=== PATIENT | male | born 1965 | race Caucasian/White ===

== ENCOUNTER → 2020-06-28 13:06 | Outpatient (REF) | payer OTHER, SELFPAY | LOC: ANHLAB 13:06 | PROVIDERS: PCP Physician Assistant; Visit Provider Nurse Practitioner | DX: L72.11 Pilar cyst (principal); L72.0 Epidermal cyst | CPT/HCPCS: 88304 ==

== ENCOUNTER 2021-04-05 00:49 | Day surgery (SDC) | payer OTHER, SELFPAY ==
[2021-03-28 11:47] VITALS: BMI 28.5
--- NOTE | 2021-04-04 13:46 | PM.HPGS ---
History of Present Illness History of Present Illness Consent: Risks, benefits, and alternatives have been discussed and questions answered. Patient agrees to proceed with procedure. Chief complaint: family hx of colon ca Narrative: Sanket Valero is a 55 year old male referred for colon cancer screening. He has a family history of colon cancer Review of Systems Review of Systems: All systems reviewed & are unremarkable except as noted in HPI and below PMFSH Past Medical History Medical History High cholesterol Hypertension Sleep apnea Surgical History Surgical History History of appendectomy 2005 History of prostatectomy 2009 History of removal of cyst scalp - 2009 Family History Family History Sibling Hypertension Family history of obesity Non-Hodgkin lymphoma Mother Cerebrovascular accident Family history of heart disease in male family member before age 55 Father Hypertension Family history of malignant neoplasm Social History Social History Smoking status: Never smoker Alcohol intake: current Drinks per week: 10 Alcohol use details: wine/liquor Living arrangements: with family Spiritual care concerns: No Meds Home Medications and Allergies Home Medications Medication Instructions Recorded Confirmed Type candesartan 16 mg tablet 16 mg PO DAILY 04/30/20 04/05/21 History niacin 500 mg tablet 500 mg PO DAILY 04/30/20 04/05/21 History omega 1-vgj-oxx-fish oil 300 3 cap PO DAILY 04/30/20 04/05/21 History mg-1,000 mg capsule oxybutynin chloride 5 mg tablet 5 mg PO DAILY 04/30/20 04/05/21 History rosuvastatin 10 mg tablet 10 mg PO DAILY 04/30/20 04/05/21 History Allergies Allergy/AdvReac Type Severity Reaction Status Date / Time No Known Allergies Allergy Verified 04/05/21 08:12 Exam Resp: Auscultation: clear to auscultation bilaterally Cardio: Rate: regular rate Rhythm: regular rhythm GI: GI Palp: Yes Soft to palpation and No Tenderness to palpation present (GI) Assessment and Plan Assessment and plan (1) Colon cancer screening: Code(s): Z12.11 - Encounter for screening for malignant neoplasm of colon Status: Acute Assessment and Plan: Colonoscopy with possible biopsy or polypectomy or cautery or injection of substances.
[2021-04-05 08:12] VITALS: BP 138/93; PULSE 64; RESP 17; TEMP 36; O2SAT 100; BMI 28.5
[2021-04-05] MEDS: LACTATED RINGERS 1,000 ML 150 ML IV CONT (08:14)
--- NOTE | 2021-04-05 08:19 | WPDANESEPPF ---
Anes - Initial Pre Proc Eval Procedure: Operation Date: 04/05/21 09:30 Proposed Procedures p Screening Colonoscopy - Enzo Zapata MD Date/Time: 04/05/21 08:19 Surgeon: Enzo Zapata MD Pre Op Diagnosis: family hx of colon ca Patient Data Age: 55 Gender: M Height: 1.75 m Weight: 87.6 kg Last Vital Signs Temp 36.0 C L 04/05/21 08:12 Pulse 64 04/05/21 08:12 Resp 17 04/05/21 08:12 BP 138/93 H 04/05/21 08:12 Pulse Ox 100 04/05/21 08:12 Allergies Allergy/AdvReac Type Severity Reaction Status Date / Time No Known Allergies Allergy Verified 04/05/21 08:12 Home Medications Medication Instructions Recorded Confirmed Type candesartan 16 mg tablet 16 mg PO DAILY 04/30/20 04/05/21 History niacin 500 mg tablet 500 mg PO DAILY 04/30/20 04/05/21 History omega 3-efp-tmb-fish oil 300 3 cap PO DAILY 04/30/20 04/05/21 History mg-1,000 mg capsule oxybutynin chloride 5 mg tablet 5 mg PO DAILY 04/30/20 04/05/21 History rosuvastatin 10 mg tablet 10 mg PO DAILY 04/30/20 04/05/21 History Patient hx anesthesia problems: none Family hx anesthesia problems: none Results Review: All pre-operative results and documents have been reviewed as part of the pre-operative evaluation. FOR[facility]LY [facility] Past Medical History Medical History High cholesterol Hypertension Sleep apnea Surgical History Surgical History History of appendectomy 2006 History of prostatectomy 2009 History of removal of cyst scalp - 2009 Family History Family History Sibling Hypertension Family history of obesity Non-Hodgkin lymphoma Mother Cerebrovascular accident Family history of heart disease in male family member before age 55 Father Hypertension Family history of malignant neoplasm Social History Social History Smoking status: Never smoker Alcohol intake: current Drinks per week: 10 Alcohol use details: wine/liquor Living arrangements: with family Spiritual care concerns: No Anes - Eval Final PreProcedure Day of Procedure 04/05/21 08:19 Patient weight: overweight Heart: regular rate and rhythm Lungs: clear to auscultation Airway: Mallampati scale class II Neurological: alert and oriented Last oral intake: >/= 8 hours ASA classification: III Emergent: no Anesthetic plan: proceed Anesthesia type and monitoring: general GIVS and standard monitoring Results Review: All pre-operative results and documents have been reviewed as part of the pre-operative evaluation. Informed Consent: The patient's anesthetic plan and its attendant risks and benefits were discussed with the patient/family/POA. Questions were solicited and answers provided to the satisfaction of the patient/family/POA.
[2021-04-05 09:39] VITALS: BP 110/70; PULSE 72; RESP 22; O2SAT 94
[2021-04-05 09:49] VITALS: BP 121/71; PULSE 73; RESP 24; O2SAT 100
[2021-04-05 09:59] VITALS: BP 120/72; PULSE 75; RESP 20; O2SAT 100
== END 2021-04-05 10:09 | disposition home or self-care (01) ==
PROVIDERS: PCP Physician Assistant; Visit Provider Internal Medicine Gastroenterology
PROC: 0DJD8ZZ Inspection of Lower Intestinal Tract, Via Natural or Artificial Opening Endoscopic (ICD-10-PCS; CPT 45378; principal; 2021-04-05 09:30)
DX: Z12.11 Encounter for screening for malignant neoplasm of colon (principal); K62.1 Rectal polyp; Z80.0 Family history of malignant neoplasm of digestive organs; I10 Essential (primary) hypertension; G47.30 Sleep apnea, unspecified; E78.00 Pure hypercholesterolemia, unspecified
CPT/HCPCS: 45380; 88305; J2001; J2704; J7120

== ENCOUNTER → 2021-07-09 11:42 | Outpatient (REF) | payer OTHER, SELFPAY | LOC: ANHLAB 11:42 | PROVIDERS: PCP Physician Assistant; Visit Provider Nurse Practitioner | DX: D22.5 Melanocytic nevi of trunk (principal) | CPT/HCPCS: 88305 ==

== ENCOUNTER → 2021-07-30 11:06 | Outpatient (REF) | payer OTHER, SELFPAY | LOC: ANHLAB 11:06 | PROVIDERS: PCP Physician Assistant; Visit Provider Nurse Practitioner | DX: D22.5 Melanocytic nevi of trunk (principal) | CPT/HCPCS: 88305; 88342 ==

== ENCOUNTER 2024-04-27 01:07 | Day surgery (SDC) | payer OTHER, SELFPAY ==
[2024-04-22 08:31] VITALS: BMI 29.5
--- NOTE | 2024-04-22 08:35 | PC.NURSE ---
Report to the Outpatient Waiting Room, entrance under the green pavilion located off [facility], at time _0730_ on date _[id number]_. Planned Procedure Time: _0830_.? Time changes happen often and if your time is changed the preop area will call you the afternoon before. - You and your visitor will be asked to self-screen and do not enter if you have any COVID symptoms. Please call surgeon if you need to reschedule. - A mask is optional within the hospital at this time. Light breakfast. Take only the following medications with a SIP of water on the morning of surgery: ___Medications OK___ DO NOT STOP ANY OF YOUR OTHER PRESCRIPTION MEDICATIONS PRIOR TO SURGERY EXCEPT THE FOLLOWING Medications to discontinue per physician ____None Please no make-up, nail [place], hairspray, perfume, deodorant, or body powder the day of surgery.? No jewelry (including any body piercings) or valuables the day of surgery, leave them at home.? Please take a shower or bath the night before, or the morning of, surgery with an antibacterial soap.? Wear comfortable, loose fitting clothing.? - Jewelry must be removed prior to entering the operating room.? Rings and piercings that are not removed may be cut off. - The hospital will not accept responsibility for valuables.? - Please leave all valuables, including medications, at home the day of surgery. If you are going home after surgery, a licensed set key driver must drive you home.? - NO public transportation without another adult if you receive anesthesia. - We recommend that an adult stay with you for 24 hours following discharge. - We also recommend that you do not drive, make important decision, drink alcoholic beverages, or take any drugs that were not prescribed by your health care provider for at least 24 hours after your discharge time. Follow any additional instructions given to you from your surgeon. Telephone instructions given to _Sanket__and asked if any additional questions and then verbalized understanding. Patient advised to call surgeon office or pre surgery nurse liaison [phone] if any additional questions.
[2024-04-27] VITALS (9 sets, daily range): BP systolic 130–148; BP diastolic 74–89; PULSE 50–66; RESP 14–16; TEMP 36.2; O2SAT 94–98
--- NOTE | 2024-04-27 08:25 | WPDHPUPDATE1 ---
History and Physical Update Update Date/Time: 04/27/24 08:25 History and Physical has been reviewed, including an updated exam of the patient. There are NO changes in the patient's condition. Risks, benefits, and alternatives have been discussed and questions answered. Patient agrees to proceed with procedure.
[2024-04-27] MEDS: BUPIVACAINE/EPINEPHRINE 0.5% 50 ML VIAL 30 ML INFILTRATE (08:59)
--- NOTE | 2024-04-27 09:52 | P.OP_ITS ---
Procedure Note - Detailed Date of Procedure 04/27/24 Pre-op Diagnosis Skin cysts (2) of the back Post-op Diagnosis Same Procedure Performed Excision 1.7 cm skin cyst of the back with no margin, 8.5 cm layered closure. Excision 2.5 cm skin cyst of the back with 2 mm margin, 2.9 cm excision. 10.5 cm layered closure. Surgeon Randal Werner MD Anesthesia Local Indications Patient has 2 skin cyst of the back. One is just left of midline and has an associated scar suggesting previous excision and recurrence. There is also another cyst on the medial border of the right scapula. Both have increased in size cause itching and are sometimes painful. Findings Right-sided lesion was clearly a skin cyst. Scar tissue associated with cyst remnants on the left side. Description of Procedure Patient was checked in the preoperative holding area. The area of the 2 cyst were marked on the skin. He was then taken to surgery and placed in prone position. The upper back was prepped and draped. Proposed transversely oriented ellipses were drawn around each of the cysts. Local was infiltrated in the area of each of the anticipated excisions as well as the deeper subcutaneous tissue. 0.5% Marcaine with epinephrine was used. The right-sided cyst was excised 1st. Incision was made and the ellipse of skin excised. Care was taken in the area of the cyst to completely remove it without entering the cyst caps ule. Once removed, the cyst was measured and found to be 1.7 cm. No margin of normal tissue was taken. The resultant wound was 8.5 cm in length. The specimen was sent to pathology. The wound was made hemostatic with the cautery. The wound was closed in layers with a deeper layer of 4-0 Vicryl interrupted suture. Subcuticular interrupted 4-0 Vicryl skin stitches were placed. Finally a running 4-0 Monocryl skin suture was placed. We turned our attention to the right-sided skin cyst. Incision was made and dissection carried out to include the scar and cyst remnants. This was bloody year than the left side due to evidence of previous surgery here or possibly cyst rupture. The lesion was however completely excised. The cyst measured 2.5 cm. I attempted to take a 2 mm margin making this a 2.9 cm excision. Cautery was used for hemostasis. The wound measured 1.5 cm in length. More local was infiltrated into the deeper areas of the wound. I then undermined the subcutaneous at the level of the muscular fascia so that the skin and subcutaneous would be more mobile in being sutured together. A deeper layer of interrupted 3-0 Vicryl suture was used. Some more superficial 4-0 Vicryl sutures were then used. 4-0 Vicryl interrupted subcuticular skin sutures were then placed. The skin was closed with a running 4-0 Monocryl skin suture. Both wounds were dressed with Exofin surgical adhesive. Patient was taken to same-day surgery in good condition. Sponge and needle counts were correct x2. Estimated Blood Loss -20 Drains No Packing No Pathology Yes (Skin cysts, 2, of the upper back) Complications None Condition Stable Disposition Same day [facility] Billing Surgery - Charge Forward: Surgery Billing (Excision 1.7 cm skin cyst of the back with no margin, 8.5 cm layered closure. Excision 2.5 cm skin cyst of the back with 2 mm margin, 2.9 cm excision. 10.5 cm layered closure.)
== END 2024-04-27 10:05 | disposition home or self-care (01) ==
PROVIDERS: PCP Physician Assistant; Visit Provider Surgery
PROC: (CPT 11402; principal; 2024-04-27 08:30)
DX: L72.0 Epidermal cyst (principal); G89.18 Other acute postprocedural pain; I10 Essential (primary) hypertension; E78.00 Pure hypercholesterolemia, unspecified; G47.30 Sleep apnea, unspecified; Z98.890 Other specified postprocedural states; Z80.7 Family history of other malignant neoplasms of lymphoid, hematopoietic and related tissues; Z82.49 Family history of ischemic heart disease and other diseases of the circulatory system
CPT/HCPCS: 11402; 11403; 12035; 88305